=== PATIENT | female | born 1975 | race American Indian/Alaskan Native ===

== ENCOUNTER 2019-05-05 11:50 | Emergency (ER) | payer SELFPAY ==
--- NOTE | 2019-05-05 12:22 | Event Note ---
ED Screening Note Date of service: 05/05/19 Time: 12:19 ED Screening Note: 43 y/o female comes in for bilateral calf pain post op surgical. Was sent by her surgeon concern for blood clots. This initial assessment/diagnostic orders/clinical plan/treatment(s) is/are subject to change based on patients health status, clinical progression and re- assessment by fellow clinical providers in the ED. Further treatment and workup at subsequent clinical providers discretion. Patient/guardian urged not to elope from the ED as their condition may be serious if not clinically assessed and managed. Initial orders include:
--- NOTE | 2019-05-05 13:15 | Vascular Lab Report ---
DUPLEX DOPPLER LOWER EXTREMITY VEINS, BILATERAL INDICATION: bilateral calf pain s/p surgery. TECHNIQUE: Duplex doppler imaging was performed through the veins of both lower extremities using venous massimo molina and other maneuvers. COMPARISON: No relevant prior imaging study available. FINDINGS: Right Common femoral vein: Negative. Right Superficial femoral vein: Negative. Right Popliteal vein: Negative. Right Calf veins: Negative. Left Common femoral vein: Negative. Left Superficial femoral vein: Negative. Left Popliteal vein: Negative. Left Calf veins: Negative. Additional findings: None.. IMPRESSION: 1. No sonographic evidence for DVT in either lower extremity. Signer Name: Jos Small MD Signed: 05/05/2019 1:10 PM Workstation Name: [id number]
[2019-05-05 16:49] VITALS: BP 133/80
== END 2019-05-05 16:55 | disposition left against medical advice (07) ==
LOC: ED 11:50
DX: M79.662 Pain in left lower leg (principal); M79.661 Pain in right lower leg; Z53.21 Procedure and treatment not carried out due to patient leaving prior to being seen by health care provider
CPT/HCPCS: 93970

== ENCOUNTER 2019-05-14 12:08 | Emergency (ER) | payer OTHER ==
[2019-05-14 12:18] VITALS: BP 135/76
--- NOTE | 2019-05-14 12:23 | Event Note ---
ED Screening Note Date of service: 05/14/19 Time: 12:17 ED Screening Note: 43 y o female presents with left calf pain This initial assessment/diagnostic orders/clinical plan/treatment(s) is/are subject to change based on patients health status, clinical progression and re- assessment by fellow clinical providers in the ED. Further treatment and workup at subsequent clinical providers discretion. Patient/guardian urged not to elope from the ED as their condition may be serious if not clinically assessed and managed. Initial orders include:
--- NOTE | 2019-05-14 15:38 | Vascular Lab Report ---
DUPLEX DOPPLER LOWER EXTREMITY VEINS, LEFT INDICATION: calf pain s/p surgery. Left lower extremity swelling. TECHNIQUE: Duplex doppler imaging was performed through the veins of the left lower extremity using venous compr ession and other maneuvers. COMPARISON: None available. FINDINGS: Common Femoral vein: Negative. Superficial Femoral vein: Negative. Popliteal vein: Negative. Calf veins: Negative. Additional findings: Questionable small hematoma in the region of the left groin incidentally noted m easuring about 3 x 2 cm.. IMPRESSION: 1. No sonographic evidence for DVT in the left lower extremity. Signer Name: Justice Grey MD Signed: 05/14/2019 3:34 PM Workstation Name: [id number]
--- NOTE | 2019-05-14 15:42 | Emergency Department Report ---
ED General Adult HPI - General Chief complaint: Extremity Injury, Lower Stated complaint: LT/RT LEG PAIN POST SURGERY Time Seen by Provider: 05/14/19 12:17 Source: patient Mode of arrival: Ambulatory Limitations: No Limitations - History of Present Illness Initial comments: Patient presents to the emergency department with a chief complaint of left leg pain. Patient presents with left calf pain and is concerned because she's had recent surgery and presents to the ED to rule out a DVT. She denies any shortness of breath, chest pain, abdominal pain. -: Sudden Consistency: constant Improves with: none Worsens with: none Associated Symptoms: denies other symptoms Treatments Prior to Arrival: none - Related Data Allergies Allergy/AdvReac Type Severity Reaction Status Date / Time prochlorperazine AdvReac Unknown Verified 05/05/19 11:53 [From Compazine] shellfish derived AdvReac Angioedema Verified 05/05/19 11:53 ED Review of Systems ROS: Stated complaint: LT/RT LEG PAIN POST SURGERY Other details as noted in HPI Comment: All other systems reviewed and negative Constitutional: denies: chills, fever Eyes: denies: eye pain, eye discharge, vision change ENT: denies: ear pain, throat pain Respiratory: denies: cough, shortness of breath, wheezing Cardiovascular: denies: chest pain, palpitations Endocrine: no symptoms reported Gastrointestinal: denies: abdominal pain, nausea, diarrhea Genitourinary: denies: urgency, dysuria, discharge Musculoskeletal: denies: back pain, joint swelling, arthralgia Skin: denies: rash, lesions Neurological: denies: headache, weakness, paresthesias Psychiatric: denies: anxiety, depression Hematological/Lymphatic: denies: easy bleeding, easy bruising ED Past Medical Hx - Past Medical History Previous Medical History?: Yes Hx Hypertension: Yes Additional medical history: LOW POTASSIUM - Surgical History Additional Surgical History: RT ANKLE. TUMMIMG TURK AND BREAST LIFT. LIPO- SURGERY AND BUTT LIFT ON SUNDAY - Social History Smoking Status: Never Smoker Substance Use Type: None ED Physical Exam - General Limitations: No Limitations General appearance: alert, in no apparent distress - Head Head exam: Present: atraumatic, normocephalic - Eye Eye exam: Present: normal appearance - ENT ENT exam: Present: mucous membranes moist - Neck Neck exam: Present: normal inspection - Respiratory Respiratory exam: Present: normal lung sounds bilaterally. Absent: respiratory distress - Cardiovascular Cardiovascular Exam: Present: regular rate, normal rhythm. Absent: systolic murmur, diastolic murmur, rubs, gallop - GI/Abdominal GI/Abdominal exam: Present: soft, normal bowel sounds. Absent: distended, tenderness - Extremities Exam Extremities exam: Present: normal inspection, other (left calf is tender to palpation but otherwise a normal nostrum reexamination) - Back Exam Back exam: Present: normal inspection - Neurological Exam Neurological exam: Present: alert, oriented X3 - Psychiatric Psychiatric exam: Present: normal affect, normal mood - Skin Skin exam: Present: warm, dry, intact, normal color. Absent: rash ED Course Vital Signs 05/14/19 12:17 Temperature 98.1 F Pulse Rate 72 Respiratory 18 Rate Blood Pressure 135/76 O2 Sat by Pulse 100 Oximetry ED Medical Decision Making - Medical Decision Making discussed results with patient Critical care attestation.: If time is entered above; I have spent that time in minutes in the direct care of this critically ill patient, excluding procedure time. ED Disposition Clinical Impression: Pain of left calf Disposition: DC-01 TO HOME OR SELFCARE Is pt being admited?: No Does the pt Need Aspirin: No Condition: Stable Additional Instructions: return if worse Referrals: PRIMARY CARE, [Primary Care Provider] - 3-5 Days [facility] [Provider Group] - 3-5 Days [facility] [Provider Group] - 3-5 Days Time of Disposition: 15:41
== END 2019-05-14 15:55 | disposition home or self-care (01) ==
LOC: ED 12:08
DX: M79.605 Pain in left leg (principal); I10 Essential (primary) hypertension; Z91.013 Allergy to seafood; Z88.8 Allergy status to other drugs, medicaments and biological substances; Z98.890 Other specified postprocedural states

== ENCOUNTER 2019-05-26 20:20 | Emergency (ER) | payer OTHER ==
--- NOTE | 2019-05-26 21:14 | Emergency Department Report ---
Blank Doc - Documentation Documentation: 43-year-old female that presents with bilateral calf pain with SOB. This initial assessment/diagnostic orders/clinical plan/treatment(s) is/are subject to change based on patient's health status, clinical progression and re- assessment by fellow clinical providers in the ED. Further treatment and workup at subsequent clinical providers discretion. Patient/guardians urged not to elope from the ED as their condition may be serious if not clinically assessed and managed. Initial orders include: 1- Patient sent to MAIN ED for further evaluation and treatment 2- labs 3- EKG 4- CXR
[2019-05-26 21:47] LABS: Basophils % (Auto) 0.7 % (0.0-1.8); Eosinophils # (Auto) 0.3 K/mm3 (0.0-0.4); Eosinophils % (Auto) 4.7 % (0.0-4.3); Hematocrit 31.6 % (30.3-42.9); Hemoglobin 10.4 gm/dl (10.1-14.3); Lymphocytes # (Auto) 2.3 K/mm3 (1.2-5.4); Lymphocytes % (Auto) 39.9 % (13.4-35.0); Mean Corpuscular HGB Conc 33 % (30-34); Mean Corpuscular Volume 74 fl (79-97); Monocytes # (Auto) 0.7 K/mm3 (0.0-0.8); Platelet Count 218 K/mm3 (140-440); Red Blood Count 4.29 M/mm3 (3.65-5.03); Red Cell Distribution Width 17.8 % (13.2-15.2)
[2019-05-26 21:58] LABS: INR 1.08 (0.87-1.13)
[2019-05-26 22:07] LABS: BUN/Creatinine Ratio 14; Blood Urea Nitrogen 14 mg/dL (7-17); Calcium 9.3 mg/dL (8.4-10.2); Hemolysis Index 5
--- NOTE | 2019-05-26 23:55 | XRay Report ---
CHEST 2 VIEWS 2308 INDICATION / CLINICAL INFORMATION: Chest Pain. COMPARISON: None available. FINDINGS: SUPPORT DEVICES: None. HEART / MEDIASTINUM: No significant abnormality. LUNGS / PLEURA: No significant pulmonary or pleural abnormality. No pneumothorax. ADDITIONAL FINDINGS: No significant additional findings. IMPRESSION: No significant acute abnormality Signer Name: Ish Bolton MD Signed: 05/26/2019 11:50 PM Workstation Name: [id number]
--- NOTE | 2019-05-27 01:06 | Emergency Department Report ---
HPI - General Chief Complaint: Extremity Injury, Lower Time Seen by Provider: 05/26/19 21:13 - HPI HPI: 43-year-old -[place] female presents to the emergency department with complaint of pain and swelling to both legs but worse in the left calf. Patient also states that she noticed some bulging vein in the lower left calf earlier today. Patient had a [place] butt lift done about 3-4 weeks ago. She complains of some intermittent shortness of breath but denies any chest pain, fever, coughing. She otherwise has a past history of hypertension and low potassium. Patient has been taking some Percocet for her postop pain but it has not been helping with the leg pain. She was here about 2 weeks ago with similar complaints and had a negative venous Doppler ultrasound done at that time. ED Past Medical Hx - Past Medical History Hx Hypertension: Yes Additional medical history: LOW POTASSIUM - Surgical History Additional Surgical History: RT ANKLE. TUMMIMG TURK AND BREAST LIFT. LIPO- SURGERY AND BUTT LIFT ON SUNDAY - Social History Smoking Status: Never Smoker Substance Use Type: None ED Review of Systems ROS: Stated complaint: CALF PAIN/SHORTNESS OF BREATH Other details as noted in HPI Comment: All other systems reviewed and negative Constitutional: denies: chills, fever Eyes: denies: eye pain, vision change ENT: denies: ear pain, throat pain Respiratory: shortness of breath. denies: cough Cardiovascular: edema. denies: chest pain Gastrointestinal: denies: abdominal pain, vomiting Genitourinary: denies: dysuria, discharge Musculoskeletal: arthralgia, myalgia Skin: denies: rash, lesions Neurological: denies: headache, numbness Physical Exam - Physical Exam Vital Signs: Vital Signs 05/26/19 21:11 Temperature 98.3 F Pulse Rate 85 Respiratory 18 Rate Blood Pressure 87/61 O2 Sat by Pulse 100 Oximetry Physical Exam: GENERAL: The patient is well-developed well-nourished. HENT: Normocephalic. Atraumatic. Patient has moist mucous membranes. EYES: Extraocular motions are intact. Pupils equal reactive to light bilaterally. NECK: Supple. Trachea is midline. CHEST/LUNGS: Clear to auscultation. There is no respiratory distress noted. HEART/CARDIOVASCULAR: Regular. There is no tachycardia. There is no murmur. ABDOMEN: Abdomen is soft, nontender. Patient has normal bowel sounds. There is no abdominal distention. SKIN: Skin is warm and dry. No appreciable edema, erythema or any lesions. NEURO: The patient is awake, alert, and oriented. The patient is cooperative. The patient has no focal neurologic deficits. Normal speech. MUSCULOSKELETAL: There is some left lower calf tenderness to palpation. No obvious deformity. There is no limitation range of motion. +2 over 4 pedal pulses bilaterally. ED Course Vital Signs 05/26/19 21:11 Temperature 98.3 F Pulse Rate 85 Respiratory 18 Rate Blood Pressure 87/61 O2 Sat by Pulse 100 Oximetry ED Medical Decision Making - Lab Data Result diagrams: 05/26/19 21:33 05/26/19 21:33 - EKG Data -: EKG Interpreted by Me EKG shows normal: sinus rhythm, axis, intervals, QRS complexes, ST-T waves Rate: normal - EKG Data When compared to previous EKG there are: previous EKG unavailable Interpretation: normal EKG - Radiology Data Radiology results: report reviewed, image reviewed interpreted by me: Chest x-ray does not show any acute process. There are no pleural effusions, obvious pneumonia and there is no pneumothorax. CTA CHEST WITH IV CONTRAST INDICATION: CP, elevated dimer, surgical procedure 4 weeks ago CONTRAST: 100 cc Omnipaque 350 IV COMPARISON: Chest x-ray tonight Three-plane MIP reconstructions were produced. All CT scans at this location are performed using CT dose reduction for ALARA by means of automated exposure control. FINDINGS: No significant axillary or chest wall lesions are seen. No mediastinal or hilar masses are noted. Visualized portions of the upper abdomen show no significant abnormalities. Lung oneil are clear. Aorta shows no aneurysmal dilatation or evidence of dissection. Adequate opacification of the pulmonary arterial system was achieved. I do not see evidence of pulmonary thromboembolism. IMPRESSION: Negative study - Medical Decision Making This patient presents to the emergency department with a complaint of continued lower extremity pain and swelling with left greater than right. This morning the patient also noticed some type of varicosity or swelling of one of the vessels in her left calf. She does have a history of a recent surgery about 3 or 4 weeks ago. Patient recently had negative lower extremity venous Doppler he re. Patient did not complain of any chest pain or shortness of breath to me but must have made this complaint to triage as a chest pain workup had been ordered including a d-dimer. Patient had negative troponins 2. She had an elevated and equivocal d-dimer. For this reason a CT angiography of the chest was done that does not show any pulmonary embolism, dissection, aneurysm, or any other acute process. I am unable to get a venous Doppler ultrasound done this evening. However the patient was given a dose of Lovenox at 1 mg per KG. She has been set up for outpatient venous Doppler ultrasound in the morning. If positive, she will be redirected to the emergency department. If negative, she needs to follow up with her primary care physician and her surgeon. All of the lab and imaging results, the plan for outpatient Doppler ultrasound, were discussed with the patient and she understands and agrees to the plan. - Differential Diagnosis DVT, varicose veins, cellulitis, venous stasis Critical Care Time: No Critical care attestation.: If time is entered above; I have spent that time in minutes in the direct care of this critically ill patient, excluding procedure time. ED Disposition Clinical Impression: Shortness of breath Calf pain Qualifiers: Laterality: unspecified laterality Qualified Code(s): M79.669 - Pain in unspecified lower leg Disposition: DC-01 TO HOME OR SELFCARE Is pt being admited?: No Condition: Stable Instructions: Leg Edema (ED), Dyspnea (ED) Additional Instructions: You are receiving an order to go to the outpatient imaging portion of the hospital for a bilateral lower extremity ultrasound to try and rule out a blood clot in the legs. If it is positive, you will be redirected to the emergency department. Otherwise, he will need to follow up with a primary care physician in the next few days. Return to the emergency Department with any worsening of your symptoms or any acute distress. Referrals: Primary Care Provider, Your [Other] - 2-3 Days Time of Disposition: 02:12
--- NOTE | 2019-05-27 01:42 | Cat Scan Report ---
CTA CHEST WITH IV CONTRAST INDICATION: CP, elevated dimer, surgical procedure 4 weeks ago CONTRAST: 100 cc Omnipaque 350 IV COMPARISON: Chest x-ray tonight Three-plane MIP reconstructions were produced. All CT scans at this location are performed using CT d ose reduction for [employer] by means of automated exposure control. FINDINGS: No significant axillary or chest wall lesions are seen. No mediastinal or hilar masses are noted. Visualized portions of the upper abdomen show no significant abnormalities. Lung oneil are cl ear. Aorta shows no aneurysmal dilatation or evidence of dissection. Adequate opacification of the pulmonary arterial system was achieved. I do not see evidence of pulmon wendie thromboembolism. IMPRESSION: Negative study Signer Name: Ish Bolton MD Signed: 05/27/2019 1:37 AM Workstation Name: [email or web address]
[2019-05-27] MEDS ORDERED: LOVENOX SUB-Q ONE (02:09)
[2019-05-27 02:23] VITALS: BP 108/68
== END 2019-05-27 03:03 | disposition home or self-care (01) ==
LOC: ED 20:20
DX: M79.604 Pain in right leg (principal); M79.605 Pain in left leg; R22.43 Localized swelling, mass and lump, lower limb, bilateral; R06.02 Shortness of breath; I10 Essential (primary) hypertension; Z98.890 Other specified postprocedural states; Z79.899 Other long term (current) drug therapy; Z91.013 Allergy to seafood; Z88.8 Allergy status to other drugs, medicaments and biological substances
CPT/HCPCS: 36415; 71046; 71275; 80048; 84484; 84703; 85025; 85379; 85610; 85730; 93005; 93010; 96372; 99285; J1650; Q9967

== ENCOUNTER 2019-05-27 11:21 | Outpatient (CLI) | payer OTHER ==
--- NOTE | 2019-05-27 14:42 | Vascular Lab Report ---
DUPLEX DOPPLER LOWER EXTREMITY VEINS, BILATERAL INDICATION: BILATERAL LOWER EXTREMITY PAIN SWELLING. TECHNIQUE: Duplex doppler imaging was performed through the veins of both lower extremities using ve nous compression and other maneuvers. COMPARISON: No relevant prior imaging study available. FINDINGS: Right Common femoral vein: Negative. Right Superficial femoral vein: Negative. Right Popliteal vein: Negative. Right Calf veins: Negative. Left Common femoral vein: Negative. Left Superficial femoral vein: Negative. Left Popliteal vein: Negative. Left Calf veins: Negative. Additional findings: None.. IMPRESSION: No sonographic evidence for DVT in either lower extremity. Signer Name: Taz Garcia Jr, MD Signed: 05/27/2019 2:38 PM Workstation Name: [id number]
== END 2019-05-27 11:22 | disposition home or self-care (01) ==
LOC: VAS 11:21
PROVIDERS: ATTEND Emergency Medicine
DX: M79.604 Pain in right leg (principal); M79.605 Pain in left leg; I10 Essential (primary) hypertension
CPT/HCPCS: 93970

== ENCOUNTER 2019-07-06 20:25 | Emergency (ER) | payer OTHER ==
[2019-07-06 20:46] VITALS: BP 104/66
[2019-07-06 21:41] LABS: Bacteria,Urine 1+ /HPF (Negative); Bilirubin,Urine NEG (Negative); Blood,Urine NEG (Negative); Color,Urine Yellow (Yellow); Mucus,Urine FEW /HPF; Protein,Urine <15 mg/dL mg/dL (Negative); Urobilinogen,Urine < 2.0 mg/dL (<2.0); WBC,Urine < 1.0 /HPF (0.0-6.0)
[2019-07-06 21:43] LABS: Basophils % (Auto) 0.9 % (0.0-1.8); Eosinophils # (Auto) 0.3 K/mm3 (0.0-0.4); Eosinophils % (Auto) 5.6 % (0.0-4.3); Hematocrit 30.7 % (30.3-42.9); Hemoglobin 10.3 gm/dl (10.1-14.3); Lymphocytes # (Auto) 2.4 K/mm3 (1.2-5.4); Lymphocytes % (Auto) 44.3 % (13.4-35.0); Mean Corpuscular HGB Conc 34 % (30-34); Mean Corpuscular Volume 71 fl (79-97); Monocytes # (Auto) 0.6 K/mm3 (0.0-0.8); Monocytes % (Auto) 11.4 % (0.0-7.3); Platelet Count 203 K/mm3 (140-440); Red Blood Count 4.35 M/mm3 (3.65-5.03); Red Cell Distribution Width 17.7 % (13.2-15.2)
[2019-07-06 21:56] LABS: Albumin 4.1 g/dL (3.9-5); BUN/Creatinine Ratio 9; Blood Urea Nitrogen 9 mg/dL (7-17); Calcium 9.5 mg/dL (8.4-10.2); Hemolysis Index 9
[2019-07-06 22:00] LABS: Alanine Aminotransferase < 5 units/L (7-56)
[2019-07-06] MEDS ORDERED: NACL 0.9% 1000 ML 1,000 ML IV ONE (23:03)
[2019-07-06] MEDS ORDERED: K-DUR PO ONE (23:03)
[2019-07-06] MEDS ORDERED: ZOFRAN IV ONE (23:03)
[2019-07-06] MEDS ORDERED: TORADOL IV ONE (23:03)
--- NOTE | 2019-07-06 23:51 | Emergency Department Report ---
ED Abdominal Pain HPI - General Chief Complaint: Abdominal Pain Stated Complaint: RIGHT ABD PAIN, DIARRHEA, ABD SWELLING Time Seen by Provider: 07/06/19 22:53 Source: patient Mode of arrival: Ambulatory Limitations: No Limitations - History of Present Illness Initial Comments: pt is a 44 yo female who presents to the ED with c/o right sided abd pain that began earlier today. she states she had two episodes of diarrhea. pt has associated nausea, abdominal bloating, and decreased appetite. she denies any vomiting, fever, urinary sx, or vaginal discharge. she denies ever having in the past. she states she has a PMHx of HTN, hypokalemia, and questionable lupus states she was tested once and it was positive and then tested again and it was negative. she states she usually takes oral potassium for her hypokalemia but did not take it yesterday. LNMP 07/01/19. states she took tylenol with codeine with some relief. Severity scale (0 -10): 2 - Related Data Previous Rx's Medication Instructions Recorded Last Taken Type Ibuprofen [Motrin 600 MG tab] 600 mg PO Q8H PRN #14 tablet 07/07/19 Unknown Rx Ondansetron [Zofran Odt] 4 mg PO Q8HR PRN #10 tab.rapdis 07/07/19 Unknown Rx traMADol [Ultram 50 MG tab] 50 mg PO Q6HR PRN #7 tablet 07/07/19 Unknown Rx Allergies Allergy/AdvReac Type Severity Reaction Status Date / Time prochlorperazine AdvReac Unknown Verified 05/05/19 11:53 [From Compazine] shellfish derived AdvReac Angioedema Verified 05/05/19 11:53 ED Review of Systems ROS: Stated complaint: RIGHT ABD PAIN, DIARRHEA, ABD SWELLING Other details as noted in HPI Comment: All other systems reviewed and negative ED Past Medical Hx - Past Medical History Hx Hypertension: Yes Additional medical history: LOW POTASSIUM - Surgical History Additional Surgical History: RT ANKLE. TUMMIMG TURK AND BREAST LIFT. LIPO- SURGERY AND BUTT LIFT ON SUNDAY - Social History Smoking Status: Never Smoker Substance Use Type: None - Medications Home Medications: Home Medications Medication Instructions Recorded Confirmed Last Taken Type Ibuprofen [Motrin 600 MG tab] 600 mg PO Q8H PRN #14 tablet 07/07/19 Unknown Rx Ondansetron [Zofran Odt] 4 mg PO Q8HR PRN #10 tab.rapdis 07/07/19 Unknown Rx traMADol [Ultram 50 MG tab] 50 mg PO Q6HR PRN #7 tablet 07/07/19 Unknown Rx ED Physical Exam - General Limitations: No Limitations General appearance: alert, in no apparent distress - Head Head exam: Present: atraumatic, normocephalic - Eye Eye exam: Present: normal appearance - ENT ENT exam: Present: mucous membranes moist - Respiratory Respiratory exam: Present: normal lung sounds bilaterally. Absent: respiratory distress, wheezes, rales, rhonchi, stridor, chest wall tenderness, accessory muscle use, decreased breath sounds, prolonged expiratory - Cardiovascular Cardiovascular Exam: Present: regular rate, normal rhythm, normal heart sounds. Absent: systolic murmur, diastolic murmur, rubs, gallop - GI/Abdominal GI/Abdominal exam: Present: soft, tenderness (generalized right sided), normal bowel sounds. Absent: distended, guarding, rebound, rigid - Back Exam Back exam: Absent: CVA tenderness (R), CVA tenderness (L) - Neurological Exam Neurological exam: Present: alert, oriented X3 - Psychiatric Psychiatric exam: Present: normal affect, normal mood - Skin Skin exam: Present: warm, dry, intact ED Course Vital Signs 07/06/19 07/06/19 07/07/19 20:45 21:06 01:20 Temperature 98.2 F 98.2 F 98.2 F Pulse Rate 72 68 68 Respiratory 16 18 18 Rate Blood Pressure 104/66 104/66 O2 Sat by Pulse 99 99 99 Oximetry ED Medical Decision Making - Lab Data Result diagrams: 07/06/19 21:19 07/06/19 21:19 Lab Results 07/06/19 07/06/19 07/06/19 Range/Units 21:19 21:19 Unknown WBC 5.5 (4.5-11.0) K/mm3 RBC 4.35 (3.65-5.03) M/mm3 Hgb 10.3 (10.1-14.3) gm/dl Hct 30.7 (30.3-42.9) % MCV 71 L (79-97) fl MCH 24 L (28-32) pg MCHC 34 (30-34) % RDW 17.7 H (13.2-15.2) % Plt Count 203 (140-440) K/mm3 Lymph % (Auto) 44.3 H (13.4-35.0) % Jack % (Auto) 11.4 H (0.0-7.3) % Eos % (Auto) 5.6 H (0.0-4.3) % Baso % (Auto) 0.9 (0.0-1.8) % Lymph # 2.4 (1.2-5.4) K/mm3 Jack # 0.6 (0.0-0.8) K/mm3 Eos # 0.3 (0.0-0.4) K/mm3 Baso # 0.0 (0.0-0.1) K/mm3 Seg Neutrophils % 37.8 L (40.0-70.0) % Seg Neutrophils # 2.1 (1.8-7.7) K/mm3 Sodium 136 L (137-145) mmol/L Potassium 3.4 L (3.6-5.0) mmol/L Chloride 96.8 L (98-107) mmol/L Carbon Dioxide 24 (22-30) mmol/L Anion Gap 19 mmol/L BUN 9 (7-17) mg/dL Creatinine 1.0 (0.7-1.2) mg/dL Estimated GFR > 60 ml/min BUN/Creatinine Ratio 9 % Glucose 100 (65-100) mg/dL Calcium 9.5 (8.4-10.2) mg/dL Total Bilirubin 0.30 (0.1-1.2) mg/dL AST 18 (5-40) units/L ALT < 5 L (7-56) units/L Alkaline Phosphatase 101 (35-129) units/L Total Protein 7.9 (6.3-8.2) g/dL Albumin 4.1 (3.9-5) g/dL Albumin/Globulin Ratio 1.1 % Lipase 21 (13-60) units/L Urine Color Yellow (Yellow) Urine Turbidity Slightly-cloudy (Clear) Urine pH 5.0 (5.0-7.0) Ur Specific [place] 1.011 (1.003-1.030) Urine Protein <15 mg/dl (Negative) mg/dL Urine Glucose (UA) Neg (Negative) mg/dL Urine Ketones Neg (Negative) mg/dL Urine Blood Neg (Negative) Urine Nitrite Neg (Negative) Urine Bilirubin Neg (Negative) Urine Urobilinogen < 2.0 (<2.0) mg/dL Ur Leukocyte Esterase Neg (Negative) Urine WBC (Auto) < 1.0 (0.0-6.0) /HPF Urine RBC (Auto) 1.0 (0.0-6.0) /HPF U Epithel Cells (Auto) 15.0 H (0-13.0) /HPF Urine Bacteria (Auto) 1+ (Negative) /HPF Urine Mucus Few /HPF - Radiology Data Radiology results: report reviewed CT ABDOMEN AND PELVIS WITH IV CONTRAST INDICATION: right sided abd pain. COMPARISON: None available. TECHNIQUE: Axial CT images were obtained through the abdomen and pelvis after IV contrast. All CT scans at this location are performed using CT dose reduction for ALARA by means of automated exposure control. FINDINGS -- ABDOMEN: Lung Bases: No acute abnormality. Liver: Normal. Gallbladder: Normal. Bile Ducts: Normal. Pancreas: Normal. Spleen: Normal. Adrenals: Normal. Right Kidney and Proximal Ureter: Normal. Left Kidney and Proximal Ureter: Normal. Stomach and Bowel: Normal. Lymph Nodes: No significant adenopathy. Aorta: No significant abnormality. IVC: Normal. Additional Findings: None. FINDINGS -- PELVIS: Urinary Bladder and Distal Ureters: Normal. Reproductive Organs: Fibroid uterus. Appendix: Normal. Bowel: No acute abnormality. Free Fluid: None. Lymph Nodes: No significant adenopathy. Additional Findings: None. Skeletal System: No acute abnormality. IMPRESSION: Fibroid uterus. Normal appendix. Nonobstructive bowel gas pattern. The gallbladder appears normal. Signer Name: Justice Grey MD Signed: 07/07/2019 12:14 AM Workstation Name: [id number] Transcribed By: Dictated By: Justice Grey MD Electronically Authenticated By: Justice Grey MD Signed Date/Time: 07/07/19 0014 - Medical Decision Making pt is a 44 yo female who presents to the ED with c/o right sided abd pain that began earlier today. she states she had two episodes of diarrhea. pt has associated nausea, abdominal bloating, and decreased appetite. she denies any vomiting, fever, urinary sx, or vaginal discharge. she denies ever having in the past. she states she has a PMHx of HTN, hypokalemia, and questionable lupus states she was tested once and it was positive and then tested again and it was negative. she states she usually takes oral potassium for her hypokalemia but did not take it yesterday. LNMP 07/01/19. states she took tylenol with codeine with some relief. vitals are normal. labs with mild dehydration, mild hypokalemia, repleted with 1L NS and kdur. UA without evidence of UTI. pts discomfort treated while in the ED and improved. CT abd pelvis shows: Fibroid uterus. Normal appendix. Nonobstructive bowel gas pattern. The gallbladder appears normal. Discussed all results with patient and answer questions. Patient given prescription for pain medication and nausea medication. advised pt to please take medication as prescribed as needed. do not drive or operate heavy machinery while taking pain medication. increase your water intake. follow up with an PUMP OPERATOR in the next 2-3 days. return to the emergency room for any new or worsening symptoms. - Differential Diagnosis diverticulitis, colitis, appendicitis, cholecystitis, fibroids,ovarian cyst Critical care attestation.: If time is entered above; I have spent that time in minutes in the direct care of this critically ill patient, excluding procedure time. ED Disposition Clinical Impression: Abdominal pain Qualifiers: Abdominal location: right lower quadrant Qualified Code(s): R10.31 - Right lower quadrant pain Uterine fibroid Qualifiers: Uterine leiomyoma location: unspecified location Qualified Code(s): D25.9 - Leiomyoma of uterus, unspecified Disposition: DC-01 TO HOME OR SELFCARE Is pt being admited?: No Does the pt Need Aspirin: No Condition: Stable Instructions: Uterine Fibroids (ED), Abdominal Pain (ED) Additional Instructions: please take medication as prescribed as needed. do not drive or operate heavy machinery while taking pain medication. increase your water intake. follow up with an PUMP OPERATOR in the next 2-3 days. return to the emergency room for any new or worsening symptoms. Prescriptions: Ibuprofen [Motrin 600 MG tab] 600 mg PO Q8H PRN #14 tablet PRN Reason: Pain, Moderate (4-6) traMADol [Ultram 50 MG tab] 50 mg PO Q6HR PRN #7 tablet PRN Reason: Pain , Severe (7-10) Ondansetron [Zofran Odt] 4 mg PO Q8HR PRN #10 tab.rapdis PRN Reason: Nausea Referrals: RUBÉN REYES MD [Staff Physician] - 2-3 Days Time of Disposition: 00:23 Print Language: TU[place]
--- NOTE | 2019-07-07 00:19 | Cat Scan Report ---
CT ABDOMEN AND PELVIS WITH IV CONTRAST INDICATION: right sided abd pain. COMPARISON: None available. TECHNIQUE: Axial CT images were obtained through the abdomen and pelvis after IV contrast. All CT scans at this location are performed using CT dose reduction for ALARA by means of automated exposure control. FINDINGS -- ABDOMEN: Lung Bases: No acute abnormality. Liver: Normal. Gallbladder: Normal. Bile Ducts: Normal. Pancreas: Normal. Spleen: Normal. Adrenals: Normal. Right Kidney and Proximal Ureter: Normal. Left Kidney and Proximal Ureter: Normal. Stomach and Bowel: Normal. Lymph Nodes: No significant adenopathy. Aorta: No significant abnormality. IVC: Normal. Additional Findings: None. FINDINGS -- PELVIS: Urinary Bladder and Distal Ureters: Normal. Reproductive Organs: Fibroid uterus. Appendix: Normal. Bowel: No acute abnormality. Free Fluid: None. Lymph Nodes: No significant adenopathy. Additional Findings: None. Skeletal System: No acute abnormality. IMPRESSION: Fibroid uterus. Normal appendix. Nonobstructive bowel gas pattern. The gallbladder appears normal. Signer Name: Justice Grey MD Signed: 07/07/2019 12:14 AM Workstation Name: [id number]
== END 2019-07-07 01:19 | disposition home or self-care (01) ==
LOC: ED 20:25
DX: D25.9 Leiomyoma of uterus, unspecified (principal); R11.2 Nausea with vomiting, unspecified; R19.7 Diarrhea, unspecified; I10 Essential (primary) hypertension; E87.6 Hypokalemia; Z91.013 Allergy to seafood; Z88.8 Allergy status to other drugs, medicaments and biological substances; Z79.899 Other long term (current) drug therapy
CPT/HCPCS: 36415; 74177; 80053; 81001; 83690; 85025; 96361; 96374; 96375; 99284; J1885; J2405; J7030; Q9967

== ENCOUNTER 2019-08-06 14:52 | Emergency (ER) | payer OTHER ==
--- NOTE | 2019-08-06 15:15 | Event Note ---
ED Screening Note Date of service: 08/06/19 Time: 15:12 ED Screening Note: 44 y o f presents with cough, fever,and sneezing with 2 episodes of nosebleed fever; currently taking ibuprofen This initial assessment/diagnostic orders/clinical plan/treatment(s) is/are subject to change based on patients health status, clinical progression and re- assessment by fellow clinical providers in the ED. Further treatment and workup at subsequent clinical providers discretion. Patient/guardian urged not to elope from the ED as their condition may be serious if not clinically assessed and managed. Initial orders include: cxr
--- NOTE | 2019-08-06 16:24 | XRay Report ---
CHEST 2 VIEWS INDICATION / CLINICAL INFORMATION: pain, fever. COMPARISON: 05/26/19 FINDINGS: SUPPORT DEVICES: None. HEART / MEDIASTINUM: No significant abnormality. LUNGS / PLEURA: No significant pulmonary or pleural abnormality. No pneumothorax. ADDITIONAL FINDINGS: No significant additional findings. IMPRESSION: 1. No acute findings. No change. Signer Name: Mahesh Boyer MD Signed: 08/06/2019 4:20 PM Workstation Name: [id number]
--- NOTE | 2019-08-06 17:34 | Emergency Department Report ---
- General Chief Complaint: Chest Pain Stated Complaint: CHEST PAIN/CONGESTION Time Seen by Provider: 08/06/19 16:42 Source: patient Mode of arrival: Ambulatory Limitations: No Limitations - History of Present Illness Initial Comments: 44-year-old Citizen Of [place] female to emergency Department complaining of cough congestion [place] and throat irritation with laryngitis which has been progressively worsening over the past 4-5 days. She was on a trip to [place] and she returned she was seen at the urgent care 2 days ago. She's been taking medication as prescribed and has continued to worsen. She will reports some voice changes, mucus production, fever sensations and chills. MD Complaint: cough, sore throat, rhinorrhea, nasal congestion -: Gradual (5) - Related Data Previous Rx's Medication Instructions Recorded Last Taken Type Ibuprofen [Motrin 600 MG tab] 600 mg PO Q8H PRN #14 tablet 07/07/19 Unknown Rx Ondansetron [Zofran Odt] 4 mg PO Q8HR PRN #10 tab.rapdis 07/07/19 Unknown Rx traMADoL [Ultram 50 MG tab] 50 mg PO Q6HR PRN #7 tablet 07/07/19 Unknown Rx Azithromycin [Zithromax] 500 mg PO QDAY #5 tablet 08/06/19 Unknown Rx guaiFENesin/CODEINE [Robitussin AC] 5 ml PO Q6H PRN #120 ml 08/06/19 Unknown Rx predniSONE [Deltasone] 50 mg PO QDAY #5 tab 08/06/19 Unknown Rx Allergies Allergy/AdvReac Type Severity Reaction Status Date / Time prochlorperazine AdvReac Unknown Verified 05/05/19 11:53 [From Compazine] shellfish derived AdvReac Angioedema Verified 05/05/19 11:53 ED Review of Systems ROS: Stated complaint: CHEST PAIN/CONGESTION Other details as noted in HPI Comment: All other systems reviewed and negative ED Past Medical Hx - Past Medical History Previous Medical History?: Yes Hx Hypertension: Yes Additional medical history: LOW POTASSIUM. lupus-need another test to confirm - Surgical History Past Surgical History?: Yes Additional Surgical History: RT ANKLE. TUMMIMG TURK AND BREAST LIFT. LIPO- SURGERY AND BUTT LIFT ON SUNDAY. hernia, mass on face removed - Social History Smoking Status: Never Smoker Substance Use Type: None - Medications Home Medications: Home Medications Medication Instructions Recorded Confirmed Last Taken Type Ibuprofen [Motrin 600 MG tab] 600 mg PO Q8H PRN #14 tablet 07/07/19 Unknown Rx Ondansetron [Zofran Odt] 4 mg PO Q8HR PRN #10 tab.rapdis 07/07/19 Unknown Rx traMADoL [Ultram 50 MG tab] 50 mg PO Q6HR PRN #7 tablet 07/07/19 Unknown Rx Azithromycin [Zithromax] 500 mg PO QDAY #5 tablet 08/06/19 Unknown Rx guaiFENesin/CODEINE [Robitussin AC] 5 ml PO Q6H PRN #120 ml 08/06/19 Unknown Rx predniSONE [Deltasone] 50 mg PO QDAY #5 tab 08/06/19 Unknown Rx ED Physical Exam - General Limitations: No Limitations General appearance: alert, in no apparent distress - Head Head exam: Present: atraumatic, normocephalic - Eye Eye exam: Present: normal appearance, PERRL, EOMI - ENT ENT exam: Present: mucous membranes moist, other (nasal congestion bilaterally. Clear drainage. Lungs are clear to auscultation) - Neck Neck exam: Present: normal inspection. Absent: lymphadenopathy - Respiratory Respiratory exam: Present: normal lung sounds bilaterally. Absent: respiratory distress, wheezes, rales, rhonchi, chest wall tenderness, accessory muscle use - Cardiovascular Cardiovascular Exam: Present: regular rate, normal rhythm. Absent: systolic murmur, diastolic murmur, rubs, gallop - GI/Abdominal GI/Abdominal exam: Present: soft, normal bowel sounds. Absent: distended, tenderness - Extremities Exam Extremities exam: Present: normal inspection - Back Exam Back exam: Present: normal inspection - Neurological Exam Neurological exam: Present: alert, oriented X3 - Psychiatric Psychiatric exam: Present: normal affect, normal mood - Skin Skin exam: Present: warm, dry, intact, normal color. Absent: rash ED Course Vital Signs 08/06/19 15:11 Temperature 98.3 F Pulse Rate 75 Respiratory 18 Rate Blood Pressure 125/86 O2 Sat by Pulse 99 Oximetry ED Medical Decision Making - Radiology Data Radiology results: report reviewed [facility] [address] [place] [address] XRay Report Signed Patient: OMID CHU MR# : [id number] : 1975 Acct:[id number] Age/Sex: 44 / F ADM Date: 08/06/19 Loc: ED Attending Dr: Ordering Physician: JORDAN SOSA Date of Service: 08/06/19 Procedure(s): XR chest routine 2V Accession Number(s): [id number] cc: JORDAN SOSA Fluoro Time In Minutes: CHEST 2 VIEWS INDICATION / CLINICAL INFORMATION: pain, fever. COMPARISON: 05/26/19 FINDINGS: SUPPORT DEVICES: None. HEART / MEDIASTINUM: No significant abnormality. LUNGS / PLEURA: No significant pulmonary or pleural abnormality. No pneumothorax. ADDITIONAL FINDINGS: No significant additional findings. IMPRESSION: 1. No acute findings. No change. Signer Name: Mahesh Boyer MD Signed: 08/06/2019 4:20 PM Workstation Name: [id number] Transcribed By: DT Dictated By: Abdi Boyer MD Electronically Authenticated By: Abdi Boyer MD Signed Date/Time: 08/06/19 6520 - Medical Decision Making 44-year-old patient presents with symptoms suspicious for likely viral upper respiratory infection. Differential includes bacterial pneumonia, sinusitis, allergic rhinitis,. Do not suspect underlying cardiopulmonary process. I considered, but think unlikely, dangerous causes of this patients symptoms to include ACS, CHF or COPD exacerbations, pneumonia, pneumothorax. Patient is nontoxic appearing and not in need of emergent medical intervention. Plan: reassurance, reassessment, over the counter medications, discharge with PCP followup Discussed with _ natural course of fever with viral illness, fever's function in body in fighting viral pathogens, my concern more for how a patient appears and acts (lethargy, irritability no po intake) as opposed to specific height of fever, expectation that fever will return when antipyretics wear off and normality of that occurrence, and appropriate dosing of antipyretics Critical care attestation.: If time is entered above; I have spent that time in minutes in the direct care of this critically ill patient, excluding procedure time. ED Disposition Clinical Impression: Normal chest x-ray, Cough Disposition: DC-01 TO HOME OR SELFCARE Is pt being admited?: No Does the pt Need Aspirin: No Condition: Stable Instructions: Cold Symptoms (ED), Upper Respiratory Infection (ED), Antitussives (By mouth), Laryngitis (ED) Additional Instructions: Follow up with your Primary Care Doctor within 48-72 hours for further evaluation. Please rest and drink plenty of fluids to remain hydrated. Please wash your hands regularly. Please take Acetaminophen every 6 hours for pain or temp greater than 100. If you have any worsening or continued fever, chills, weakness, nausea, vomiting, abdominal pain return to ED. Referrals: [facility] [Provider Group] - 3-5 Days
[2019-08-06 17:55] VITALS: BP 121/86
== END 2019-08-06 17:52 | disposition home or self-care (01) ==
LOC: ED 14:52
DX: R91.8 Other nonspecific abnormal finding of lung field (principal); R05 Cough; R09.81 Nasal congestion; I10 Essential (primary) hypertension; Z98.890 Other specified postprocedural states; Z79.899 Other long term (current) drug therapy; Z88.8 Allergy status to other drugs, medicaments and biological substances; Z91.013 Allergy to seafood
CPT/HCPCS: 71046; 93005; 93010

== ENCOUNTER 2019-09-29 20:32 | Emergency (ER) | payer OTHER ==
--- NOTE | 2019-09-29 21:41 | Emergency Department Report ---
Blank Doc - Documentation Documentation: 44-year-old female that presents with left sided chest pain and SOB. Stated f eels like heaviness in chest. This initial assessment/diagnostic orders/clinical plan/treatment(s) is/are subject to change based on patient's health status, clinical progression and re- assessment by fellow clinical providers in the ED. Further treatment and workup at subsequent clinical providers discretion. Patient/guardians urged not to elope from the ED as their condition may be serious if not clinically assessed and managed. Initial orders include: 1- Patient sent to MAIN ED for further evaluation and treatment 2- labs 3- EKG 4- CXR
[2019-09-29 22:16] LABS: Basophils % (Auto) 0.4 % (0.0-1.8); Eosinophils # (Auto) 0.2 K/mm3 (0.0-0.4); Eosinophils % (Auto) 3.4 % (0.0-4.3); Hemoglobin 10.9 gm/dl (10.1-14.3); Lymphocytes # (Auto) 2.3 K/mm3 (1.2-5.4); Lymphocytes % (Auto) 34.6 % (13.4-35.0); Mean Corpuscular HGB Conc 33 % (30-34); Mean Corpuscular Volume 73 fl (79-97); Monocytes # (Auto) 0.8 K/mm3 (0.0-0.8); Monocytes % (Auto) 12.6 % (0.0-7.3); Platelet Count 164 K/mm3 (140-440); Red Blood Count 4.51 M/mm3 (3.65-5.03); Red Cell Distribution Width 19.2 % (13.2-15.2)
[2019-09-29 22:25] LABS: INR 0.99 (0.87-1.13)
[2019-09-29 22:26] LABS: Partial Thromboplastin Time 31.4 Sec. (24.2-36.6)
[2019-09-29 22:42] LABS: Albumin 4.1 g/dL (3.9-5); BUN/Creatinine Ratio 12; Blood Urea Nitrogen 11 mg/dL (7-17); Calcium 9.7 mg/dL (8.4-10.2); Hemolysis Index 23
[2019-09-29 22:44] LABS: Alanine Aminotransferase < 5 units/L (7-56)
--- NOTE | 2019-09-29 22:49 | XRay Report ---
CHEST 2 VIEWS INDICATION: Chest Pain. COMPARISON: 08/06/2019.. FINDINGS: Support devices: None. Heart: Within normal limits. Lungs/Pleura: No acute air space or interstitial disease. No significant pleural effusion. IMPRESSION: No acute findings. Signer Name: Gaudencio Wyatt MD Signed: 09/29/2019 10:44 PM Workstation Name: [id number]
--- NOTE | 2019-09-30 02:12 | Emergency Department Report ---
ED General Adult HPI - General Chief complaint: Chest Pain Stated complaint: CHEST PAIN Time Seen by Provider: 09/29/19 21:39 Source: patient Mode of arrival: Ambulatory Limitations: No Limitations - History of Present Illness Initial comments: The patient presents to the emergency department with a chief complaint of intermittent chest pain for the last 2-3 days. Patient states she has a history of chest pain and had a stress test 8 months ago that was normal. 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 Patient follows with her primary care physician is Dr. Enrique Coffman. Patient states she has a GI appointment tomorrow morning. Patient states that the chest pain is worse with eating and feels like something is spasming in her chest. Patient denies shortness of breath, recent travel, abdominal pain. -: Gradual Location: chest Radiation: non-radiation Severity scale (0 -10): 5 Quality: dull Consistency: constant Improves with: none Worsens with: none Associated Symptoms: denies other symptoms Treatments Prior to Arrival: none - Related Data Previous Rx's Medication Instructions Recorded Last Taken Type Ibuprofen [Motrin 600 MG tab] 600 mg PO Q8H PRN #14 tablet 07/07/19 Unknown Rx Ondansetron [Zofran Odt] 4 mg PO Q8HR PRN #10 tab.rapdis 07/07/19 Unknown Rx traMADoL [Ultram 50 MG tab] 50 mg PO Q6HR PRN #7 tablet 07/07/19 Unknown Rx Azithromycin [Zithromax] 500 mg PO QDAY #5 tablet 08/06/19 Unknown Rx guaiFENesin/CODEINE [Robitussin AC] 5 ml PO Q6H PRN #120 ml 08/06/19 Unknown Rx predniSONE [Deltasone] 50 mg PO QDAY #5 tab 08/06/19 Unknown Rx Allergies Allergy/AdvReac Type Severity Reaction Status Date / Time prochlorperazine AdvReac Unknown Verified 05/05/19 11:53 [From Compazine] shellfish derived AdvReac Angioedema Verified 05/05/19 11:53 ED Review of Systems ROS: Stated complaint: CHEST PAIN Other details as noted in HPI Comment: All other systems reviewed and negative Constitutional: denies: chills, fever Eyes: denies: eye pain, eye discharge, vision change ENT: denies: ear pain, throat pain Respiratory: denies: cough, shortness of breath, wheezing Cardiovascular: chest pain. denies: palpitations Endocrine: no symptoms reported Gastrointestinal: denies: abdominal pain, nausea, diarrhea Genitourinary: denies: urgency, dysuria, discharge Musculoskeletal: denies: back pain, joint swelling, arthralgia Skin: denies: rash, lesions Neurological: denies: headache, weakness, paresthesias Psychiatric: denies: anxiety, depression Hematological/Lymphatic: denies: easy bleeding, easy bruising ED Past Medical Hx - Past Medical History Previous Medical History?: Yes Hx Hypertension: Yes Additional medical history: LOW POTASSIUM. lupus-need another test to confirm - Surgical History Additional Surgical History: RT ANKLE. TUMMIMG TURK AND BREAST LIFT. LIPO- SURGERY AND BUTT LIFT ON SUNDAY. hernia, mass on face removed - Social History Smoking Status: Never Smoker Substance Use Type: None - Medications Home Medications: Home Medications Medication Instructions Recorded Confirmed Last Taken Type Ibuprofen [Motrin 600 MG tab] 600 mg PO Q8H PRN #14 tablet 07/07/19 Unknown Rx Ondansetron [Zofran Odt] 4 mg PO Q8HR PRN #10 tab.rapdis 07/07/19 Unknown Rx traMADoL [Ultram 50 MG tab] 50 mg PO Q6HR PRN #7 tablet 07/07/19 Unknown Rx Azithromycin [Zithromax] 500 mg PO QDAY #5 tablet 08/06/19 Unknown Rx guaiFENesin/CODEINE [Robitussin AC] 5 ml PO Q6H PRN #120 ml 08/06/19 Unknown Rx predniSONE [Deltasone] 50 mg PO QDAY #5 tab 08/06/19 Unknown Rx ED Physical Exam - General Limitations: No Limitations General appearance: alert, in no apparent distress - Head Head exam: Present: atraumatic, normocephalic - Eye Eye exam: Present: normal appearance, PERRL, EOMI - ENT ENT exam: Present: mucous membranes moist - Neck Neck exam: Present: normal inspection - Respiratory Respiratory exam: Present: normal lung sounds bilaterally. Absent: respiratory distress - Cardiovascular Cardiovascular Exam: Present: regular rate, normal rhythm. Absent: systolic murmur, diastolic murmur, rubs, gallop - GI/Abdominal GI/Abdominal exam: Present: soft, normal bowel sounds. Absent: distended, tenderness - Extremities Exam Extremities exam: Present: normal inspection - Back Exam Back exam: Present: normal inspection - Neurological Exam Neurological exam: Present: alert, oriented X3, CN II-XII intact. Absent: motor sensory deficit - Psychiatric Psychiatric exam: Present: normal affect, normal mood - Skin Skin exam: Present: warm, dry, intact, normal color. Absent: rash ED Course Vital Signs 09/29/19 09/30/19 09/30/19 21:43 01:12 01:14 Temperature 98.3 F 98.8 F 98.8 F Pulse Rate 75 76 76 Respiratory 18 18 18 Rate Blood Pressure 134/81 137/82 137/82 O2 Sat by Pulse 100 100 100 Oximetry ED Medical Decision Making - Lab Data Result diagrams: 09/29/19 21:50 09/29/19 21:50 Lab Results 09/29/19 09/29/19 09/29/19 Range/Units 21:50 21:50 21:50 WBC 6.6 (4.5-11.0) K/mm3 RBC 4.51 (3.65-5.03) M/mm3 Hgb 10.9 (10.1-14.3) gm/dl Hct 33.0 (30.3-42.9) % MCV 73 L (79-97) fl MCH 24 L (28-32) pg MCHC 33 (30-34) % RDW 19.2 H (13.2-15.2) % Plt Count 164 (140-440) K/mm3 Lymph % (Auto) 34.6 (13.4-35.0) % [place] % (Auto) 12.6 H (0.0-7.3) % Eos % (Auto) 3.4 (0.0-4.3) % Baso % (Auto) 0.4 (0.0-1.8) % Lymph # 2.3 (1.2-5.4) K/mm3 [place] # 0.8 (0.0-0.8) K/mm3 Eos # 0.2 (0.0-0.4) K/mm3 Baso # 0.0 (0.0-0.1) K/mm3 Seg Neutrophils % 49.0 (40.0-70.0) % Seg Neutrophils # 3.2 (1.8-7.7) K/mm3 PT 13.2 (12.2-14.9) Sec. INR 0.99 (0.87-1.13) APTT 31.4 (24.2-36.6) Sec. Sodium (137-145) mmol/L Potassium (3.6-5.0) mmol/L Chloride (98-107) mmol/L Carbon Dioxide (22-30) mmol/L Anion Gap mmol/L BUN (7-17) mg/dL Creatinine (0.7-1.2) mg/dL Estimated GFR ml/min BUN/Creatinine Ratio % Glucose (65-100) mg/dL Calcium (8.4-10.2) mg/dL Total Bilirubin (0.1-1.2) mg/dL AST (5-40) units/L ALT (7-56) units/L Alkaline Phosphatase (35-129) units/L Troponin T (0.00-0.029) ng/mL Total Protein (6.3-8.2) g/dL Albumin (3.9-5) g/dL Albumin/Globulin Ratio % HCG, Qual Negative (Negative) 09/29/19 09/30/19 Range/Units 21:50 00:40 WBC (4.5-11.0) K/mm3 RBC (3.65-5.03) M/mm3 Hgb (10.1-14.3) gm/dl Hct (30.3-42.9) % MCV (79-97) fl MCH (28-32) pg MCHC (30-34) % RDW (13.2-15.2) % Plt Count (140-440) K/mm3 Lymph % (Auto) (13.4-35.0) % [place] % (Auto) (0.0-7.3) % Eos % (Auto) (0.0-4.3) % Baso % (Auto) (0.0-1.8) % Lymph # (1.2-5.4) K/mm3 [place] # (0.0-0.8) K/mm3 Eos # (0.0-0.4) K/mm3 Baso # (0.0-0.1) K/mm3 Seg Neutrophils % (40.0-70.0) % Seg Neutrophils # (1.8-7.7) K/mm3 PT (12.2-14.9) Sec. INR (0.87-1.13) APTT (24.2-36.6) Sec. Sodium 141 (137-145) mmol/L Potassium 3.5 L (3.6-5.0) mmol/L Chloride 104.2 (98-107) mmol/L Carbon Dioxide 20 L (22-30) mmol/L Anion Gap 20 mmol/L BUN 11 (7-17) mg/dL Creatinine 0.9 (0.7-1.2) mg/dL Estimated GFR > 60 ml/min BUN/Creatinine Ratio 12 % Glucose 94 (65-100) mg/dL Calcium 9.7 (8.4-10.2) mg/dL Total Bilirubin 0.30 (0.1-1.2) mg/dL AST 17 (5-40) units/L ALT < 5 L (7-56) units/L Alkaline Phosphatase 96 (35-129) units/L Troponin T < 0.010 < 0.010 (0.00-0.029) ng/mL Total Protein 7.7 (6.3-8.2) g/dL Albumin 4.1 (3.9-5) g/dL Albumin/Globulin Ratio 1.1 % HCG, Qual (Negative) - EKG Data -: EKG Interpreted by Me EKG shows normal: sinus rhythm Rate: normal Critical care attestation.: If time is entered above; I have spent that time in minutes in the direct care of this critically ill patient, excluding procedure time. ED Disposition Clinical Impression: Nonspecific chest pain Disposition: DC- TO HOME OR SELFCARE Is pt being admited?: No Does the pt Need Aspirin: No Condition: Stable Instructions: Chest Pain (ED) Additional Instructions: return if worse Referrals: ALYSHA CONROY MD [Staff Physician] - 3-5 Days ENRIQUE COFFMAN MD [Referring] - 3-5 Days Time of Disposition: 02:12
[2019-09-30 02:13] VITALS: BP 112/72
== END 2019-09-30 02:18 | disposition home or self-care (01) ==
LOC: ED 20:32
DX: R07.89 Other chest pain (principal); I10 Essential (primary) hypertension; Z79.899 Other long term (current) drug therapy; Z88.8 Allergy status to other drugs, medicaments and biological substances; Z91.013 Allergy to seafood; Z98.890 Other specified postprocedural states
CPT/HCPCS: 36415; 71046; 80053; 84484; 84703; 85025; 85610; 85730; 93005; 93010

== ENCOUNTER 2019-10-30 22:18 | Emergency (ER) | payer OTHER ==
[2019-10-30 22:43] VITALS: BP 130/75
--- NOTE | 2019-10-31 01:16 | Emergency Department Report ---
Chief Complaint: Earache Stated Complaint: SORE THROAT RT AND LT EAR PAIN Time Seen by Provider: 10/30/19 23:55 - HPI History of Present Illness: Patient is a 44-year-old female presents emergency room with complaints of congestion and nasal pain that began yesterday. She has a sore throat, ear pain. She denies any rhinorrhea, pain with swallowing, fever, nausea, vomiting, diarrhea, chest pain, shortness of breath, productive cough. She states that she took TheraFlu 1 time yesterday. She states that she possibly has a past medical history of lupus but her work-up has been inconclusive. She has an allergy to Compazine and seafood. Vitals are normal On exam: Nontoxic appearing, no acute distress Atraumatic, normocephalic Normal nasal turbinates, no purulent drainage, no sinus tenderness to palpation bilaterally Normal oropharynx, no tonsillar exudate, no tonsillar hypertrophy Normal TMs and canals bilaterally, no ttp of the bilateral mastoid process Regular heart rate and rhythm, no murmurs, no gallops, no rubs, Breath sounds are clear bilaterally without wheezing, rales, rhonchi Skin is warm, dry, intact Patient is alert and oriented x4 No clinical signs of pneumonia, no clinical signs of influenza, no otitis media or externa, no tonsillitis or strep throat, no mastoiditis Examination consistent with viral URI Discussed supportive care and symptomatic treatment with patient Patient will be referred to a primary care physician Medical screening examination performed there is no threat to life or limb at this time Patient given strict return precautions - Exam Vital Signs: Vital Signs 10/30/19 22:39 Temperature 98.6 F Pulse Rate 63 Respiratory 20 Rate Blood Pressure 130/75 O2 Sat by Pulse 100 Oximetry MSE screening note: Focused history and physical exam performed. ED Disposition for MSE Clinical Impression: Viral URI Disposition: Z-07 MED SCREENING EXAM-LEFT Is pt being admited?: No Does the pt Need Aspirin: No Condition: Stable Instructions: Viral Syndrome (ED) Additional Instructions: Please increase your fluid intake over the next several days. May take Mucinex during the day and TheraFlu at night. May use [id number] throat spray and ear relief drops. May alternate Tylenol and ibuprofen as needed for pain. May do warm salt water gargles. Follow-up with a primary care doctor in the next 3 days for reexamination. Return to the emergency room for any new or worsening symptoms. Referrals: PRIMARY CARE, [Primary Care Provider] - 2-3 Days Time of Disposition: 01:17 Print Language: PERUVIAN
== END 2019-10-31 01:20 | disposition left against medical advice (07) ==
LOC: ED 22:18
DX: J06.9 Acute upper respiratory infection, unspecified (principal); Z91.013 Allergy to seafood; Z88.8 Allergy status to other drugs, medicaments and biological substances
CPT/HCPCS: 99282

== ENCOUNTER 2022-04-12 14:46 | Emergency (ER) | payer OTHER | END 2022-04-12 15:00 | disposition left against medical advice (07) | LOC: ED 14:46 | DX: R07.9 Chest pain, unspecified (principal); Z53.21 Procedure and treatment not carried out due to patient leaving prior to being seen by health care provider ==